=== PATIENT | male | born 1970 | race Caucasian/White ===

== ENCOUNTER 2019-06-06 12:36 | Observation (INO) | payer SELFPAY ==
[2019-06-06] MEDS ORDERED: Iopamidol 370 76% 100 ML VIAL ONE (12:56)
[2019-06-06 13:07] LABS: #Basophils 0.1 thou/uL (0.0-0.2); #Eosinphils 0.1 thou/uL (0.0-0.7); #Lymphocytes 4.4 thou/uL (1.20-3.40); #Monocytes 1.2 thou/uL (0.11-0.59); #Neutrophils 11.6 thou/uL (1.40-6.50); %Basophils 0.7 % (0.0-1.0); %Eosinophils 0.4 % (0.0-10.0); %Lymphocytes 25.3 % (21.0-51.0); %Monocytes 6.8 % (0.0-10.0); %Neutrophils 66.7 % (42.0-75.0); Hemoglobin 17.9 g/dL (14.0-18.0); Mean Corpuscular Hemoglobin 28.5 pg (27.0-31.0); Mean Corpuscular Volume 91.7 fL (78.0-98.0); Mean Platelet Volume 7.2 fL (7.4-10.4); Platelet Count 474 thou/uL (130-400); RBC Distribution Width 12.5 % (11.5-14.5); White Blood Cell (WBC) Count 17.3 thou/uL (4.8-10.8)
--- NOTE | 2019-06-06 13:17 | RAD ---
SINGLE VIEW CHEST: Date: 06/06/2019 COMPARISON: None. HISTORY: Dizziness and lightheadedness for 3 days. FINDINGS: Single view of the chest shows a normal sized cardiomediastinal silhouette. There is no evidence of c onsolidation, mass, or pleural effusion. The bones are unremarkable. IMPRESSION: No evidence of acute cardiopulmonary disease. POS: CET
[2019-06-06 13:28] LABS: ALT (SGPT) 21 U/L (8-55); AST (SGOT) 16 U/L (5-34); Albumin 4.7 g/dL (3.5-5.0); Alkaline Phosphatase 98 U/L (40-110); Anion Gap 16 mmol/L (10-20); BUN (Urea Nitrogen) 9 mg/dL (8.9-20.6); Bilirubin, Total 1.1 mg/dL (0.2-1.2); Calc. Creatinine Clearance 0 mL/min (70-130); Calcium 10.5 mg/dL (7.8-10.44); Carbon Dioxide 24 mmol/L (22-29); Chloride 103 mmol/L (98-107); Estimated GFR-MDRD 84; Globulin 3.5 g/dL (2.4-3.5); Glucose 137 mg/dL (70-105); Protein, Total 8.2 g/dL (6.0-8.3); Sodium 139 mmol/L (136-145)
[2019-06-06 13:40] LABS: Bilirubin Negative (Negative); Blood, Urine Negative (Negative); Clarity Clear (Clear); Glucose, Urine (Dipstick) Normal (Negative); Leukocyte Negative Leu/uL (Negative); Nitrite Negative (Negative); Protein, Urine (Dipstick) Negative (Neg-Trace); Urobilinogen Normal mg/dL (Less than 2)
--- NOTE | 2019-06-06 14:04 | CT ---
CT ANGIO OF CHEST PERFORMED WITH IV CONTRAST ENHANCEMENT AND 3D RECONSTRUCTIONS: Date: 06/06/2019 HISTORY: Syncope. FINDINGS: The lungs are clear of any infiltrative process. No pulmonary nodules or pleural effusions. No significant mediastinal, hilar, or axillary adenopathy. The thoracic aorta is normal in caliber. There is fairly good pulmonary artery opacification and no C T evidence for pulmonary embolus. Visualized liver parenchyma shows suggestion of some fatty change. Right and left adrenal glands are normal. IMPRESSION: No CT evidence for pulmonary embolus. POS: TPC
[2019-06-06] MEDS ORDERED: Lorazepam 2 MG/ML VIAL ONE (14:10)
[2019-06-06 17:36] LABS: Amphetamine Not Detected (NotDetected); Barbiturates Screen Not Detected (NotDetected); Benzodiazepine Screen Not Detected (NotDetected); Cocaine Metabolite Screen Not Detected (NotDetected); Medtox Control Line Valid? VALID (VALID); Medtox Reader # READER 1; Methadone Not Detected (NotDetected); Methamphetamine Not Detected (NotDetected); Opiate Screen Not Detected (NotDetected); Oxycodone Screen Not Detected (NotDetected); Phencyclidine (PCP) Not Detected (NotDetected); THC/Cannabinoid Screen Not Detected (NotDetected); Tricyclic Screen Not Detected (NotDetected)
[2019-06-06 18:48] LABS: Troponin I Less than 0.010 ng/mL (< 0.028)
[2019-06-06 19:55] VITALS: BMI 30.6
[2019-06-06] MEDS: Sodium Chloride 0.9% 1,000 ML IV SCH (20:49)
[2019-06-06 21:52] LABS: Troponin I Less than 0.010 ng/mL (< 0.028)
[2019-06-06] MEDS ORDERED: Acetaminophen 325 MG TAB PO PRN (23:12)
[2019-06-06] MEDS ORDERED: Acetaminophen 650 MG Suppository PR PRN (23:12)
[2019-06-06 23:15] LABS: Lactic Acid 1.9 mmol/L (0.5-2.2)
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
[2019-06-07 04:55] LABS: #Basophils 0.1 thou/uL (0.0-0.2); #Eosinphils 0.2 thou/uL (0.0-0.7); #Lymphocytes 3.7 thou/uL (1.20-3.40); #Monocytes 1.4 thou/uL (0.11-0.59); #Neutrophils 7.6 thou/uL (1.40-6.50); %Basophils 1.1 % (0.0-1.0); %Eosinophils 1.7 % (0.0-10.0); %Lymphocytes 28.5 % (21.0-51.0); %Monocytes 10.5 % (0.0-10.0); %Neutrophils 58.3 % (42.0-75.0); Mean Corpuscular HGB CONC 31.2 g/dL (32.0-36.0); Mean Corpuscular Hemoglobin 28.8 pg (27.0-31.0); Mean Corpuscular Volume 92.4 fL (78.0-98.0); Mean Platelet Volume 7.3 fL (7.4-10.4); Platelet Count 437 thou/uL (130-400); RBC Distribution Width 12.5 % (11.5-14.5)
[2019-06-07 05:18] LABS: Anion Gap 12 mmol/L (10-20); BUN (Urea Nitrogen) 9 mg/dL (8.9-20.6); Calc. Creatinine Clearance 159 mL/min (70-130); Calcium 8.8 mg/dL (7.8-10.44); Carbon Dioxide 23 mmol/L (22-29); Chloride 107 mmol/L (98-107); Estimated GFR-MDRD Greater than 90; Glucose 96 mg/dL (70-105); Potassium 4.2 mmol/L (3.5-5.1); Sodium 138 mmol/L (136-145)
[2019-06-07] MEDS: Sodium Chloride 0.9% 1,000 ML IV SCH (06:01)
[2019-06-07 08:32] VITALS: BP 137/86; TEMP 98.6
[2019-06-07] MEDS ORDERED: Famotidine/PF 20 mg/2ml Vial SLOW IVP SCH (09:00)
--- NOTE | 2019-06-07 09:25 | PDOC.HOSPP ---
- Subjective Encounter Date: 06/07/19 Encounter Time: 10:30 Subjective: Patient a little tachycardic with showering this AM. Otherwise has had regular heart rhythm overnight after fluids. No further chest pressure. No fever. No other symptoms. - Objective Vital Signs & Weight: Vital Signs (12 hours) Temp Pulse Resp BP BP BP BP 06/07/19 08:30 98.6 F 95 18 139/83 146/116 H 137/86 06/07/19 06:47 113 H 06/07/19 03:54 98.2 F 85 15 125/73 06/07/19 03:00 82 06/07/19 01:52 85 06/07/19 01:01 87 06/06/19 23:26 98.4 F 104 H 16 131/96 H 135/98 H 134/81 Pulse Ox 06/07/19 08:30 95 06/07/19 06:47 06/07/19 03:54 98 06/07/19 03:00 06/07/19 01:52 06/07/19 01:01 06/06/19 23:26 95 Weight Weight 189 lb 11.2 oz I&O: 06/06/19 06/07/19 06/08/19 06:59 06:59 06:59 Intake Total 1221 Output Total 1100 Balance 121 Result Diagrams: 06/07/19 04:34 06/07/19 04:34 Hospitalist ROS - Review of Systems Constitutional: denies: fever, chills Respiratory: denies: cough, shortness of breath Cardiovascular: reports: palpitations. denies: chest pain, orthopnea, paroxysmal noc. dyspnea, edema Gastrointestinal: denies: nausea, vomiting, abdominal pain, diarrhea, constipation Genitourinary: denies: dysuria, hematuria - Medication Medications: Active Medications Generic Name Dose Route Start Last Admin Trade Name Freq PRN Reason Stop Dose Admin Famotidine 20 mg 06/07/19 09:00 06/07/19 09:06 Pepcid SLOW IVP Not Given Q12HR BRIAN Sodium Chloride 10 ml 06/06/19 20:09 06/06/19 20:50 Flush - Normal Saline IVF 10 ml PRN PRN Administration Saline Flush - Exam General Appearance: NAD, awake alert ENT: moist mucosa Heart: RRR, no murmur, no gallops, no rubs Respiratory: CTAB, no wheezes, no rales, no ronchi Gastrointestinal: soft, non-tender, non-distended, normal bowel sounds Extremities: no cyanosis, no clubbing, no edema Neurological: cranial nerve grossly intact, no focal deficits Musculoskeletal: normal tone, normal strength Psychiatric: normal behavior, A&O x 3 Psychiatric - other findings: anxious affect Hosp A/P (1) SIRS (systemic inflammatory response syndrome) Code(s): R65.10 - SIRS OF NON-INFECTIOUS ORIGIN W/O ACUTE ORGAN DYSFUNCTION Status: Acute (2) Sinus tachycardia Code(s): R00.0 - TACHYCARDIA, UNSPECIFIED Status: Acute (3) Chest discomfort Code(s): R07.89 - OTHER CHEST PAIN Status: Resolved - Plan Leukocytosis and tachycardia improved with IV fluids. CMs neg x3. No EKG changes. Normal tele monitor. BPs neg for orthostasis. Can d/c back to [facility]. F /u with [facility] doctor within the week. If tachycardia persists, may need referral to cardiology or psychiatry (for anxiety).
[2019-06-07] MEDS ORDERED: FLU VACC QS2019-20(6MOS UP)/PF 60 MCG/0.5 ML SYRINGE IM ONE (21:00)
--- NOTE | 2019-06-08 03:12 | DIS ---
DATE OF ADMISSION: 06/06/2019 DATE OF DISCHARGE: 06/07/2019 PRIMARY CARE PHYSICIAN: [facility]. REASON FOR ADMISSION: Chest pain and tachycardia. DIAGNOSES AT DISCHARGE: 1. Chest discomfort, resolved. 2. Sinus tachycardia, improved. 3. Systemic inflammatory response syndrome without evidence of source of infection, now resolved. 4. Anxiety. PROCEDURES PERFORMED: CT of the chest and thorax with contrast showing no evidence for pulmonary embolism or other abnormality. CONSULTATIONS: None. SUMMARY OF HOSPITAL COURSE: This is a 48-year-old white male, who is a resident of the [facility]. He started having lightheadedness and racing heart, 3 or 4 days prior, get worse when he stand up quickly. They tried to get him to drink fluids in the retirement. However, he had continued tachycardia and after several days of tachycardia, his chest started to feel a little sore in the middle, 2/10 in severity. He was brought into the emergency room. In the ER, he was found to be quite tachycardic, sinus tachycardia on the EKG, and heart monitor into 130s. He was given 3 L of normal saline with some improvement. He had a CTA of the chest that was negative for any PE. The patient was observed in the hospital overnight with continued fluid administration. His resting heart rate came down to the 80s. He still did get tachycardiac with activity, but looked a lot better. He had normal sinus rhythm on the telemetry monitoring overnight. He had negative cardiac markers. His white blood cell count was elevated on admission with a normal differential. This came down with fluids. Presumably, this was a stress response. The patient was noted to be somewhat anxious. The rest of his lab, his urine drug screen, his urinalysis, his chest x-ray all were negative. At the time of discharge, the patient has no evidence for infection and looks significantly better after IV fluid administration, is being discharged back to the [facility] on oral fluid and follow up with the retirement doctor in the next week. DISCHARGE MANAGEMENT: Discharged back to retirement. ACTIVITY: As tolerated. DIET: Regular diet, but lots of fluids. FOLLOWUP: Follow up with the retirement doctor in the next week. DISCHARGE MEDICATIONS: The patient continues meclizine from the retirement system. Job ID: [id number]
== END 2019-06-07 12:23 ==
LOC: ERS 12:36 → 2SW 18:39
PROVIDERS: ADMIT Emergency Medicine; ATTEND Emergency Medicine
DX: R07.89 Other chest pain (principal); R00.0 Tachycardia, unspecified; R42 Dizziness and giddiness; R65.10 Systemic inflammatory response syndrome (SIRS) of non-infectious origin without acute organ dysfunction; F41.9 Anxiety disorder, unspecified; D72.829 Elevated white blood cell count, unspecified; Z79.899 Other long term (current) drug therapy; Z88.0 Allergy status to penicillin; Z90.2 Acquired absence of lung [part of]
CPT/HCPCS: 36415; 71045; 71275; 80048; 80053; 80306; 81003; 82550; 83605; 83735; 84145; 84443; 84484; 85025; 87040; 93005; 96361; 96374; G0378; J2060; Q9967